=== PATIENT | female | born 1970 | race Caucasian/White ===

== ENCOUNTER 2023-04-22 16:05 | Emergency (ER) | payer OTHER ==
[2023-04-22] MEDS: Orphenadrine 60 MG/2 ML Inj IM ONE (16:27)
== END 2023-04-22 16:46 | disposition home or self-care (01) ==
LOC: VM.ED 16:05
DX: M54.50 Low back pain, unspecified (principal); Z88.1 Allergy status to other antibiotic agents; Z79.899 Other long term (current) drug therapy
CPT/HCPCS: 96372; 99283; J2360